=== PATIENT | male | born 1945 | race Caucasian/White ===

== ENCOUNTER 2022-11-08 04:30 | Day surgery (SDC) | payer BC, OTHER ==
[2022-11-07 08:40] VITALS: BMI 24.5
[2022-11-08 11:54] VITALS: TEMP 97.3
[2022-11-08 12:55] VITALS: BP 142/71; PULSE 56; RESP 13
== END 2022-11-08 13:00 | disposition home or self-care (01) ==
LOC: JASU-ENDO 04:30
PROVIDERS: ATTEND Internal Medicine Gastroenterology
PROC: 0DB48ZX Excision of Esophagogastric Junction, Via Natural or Artificial Opening Endoscopic, Diagnostic (ICD-10-PCS; principal; 2022-11-08 12:00)
DX: K22.70 Barrett's esophagus without dysplasia (principal); K21.00 Gastro-esophageal reflux disease with esophagitis, without bleeding; K44.9 Diaphragmatic hernia without obstruction or gangrene
CPT/HCPCS: 88305-TC